=== PATIENT | female | born 1975 | race Hispanic/Latino ===

== ENCOUNTER → 2020-04-16 | Outpatient (CLI) | payer BC, OTHER ==
[~2020-04-16] MED LIST: DIATRIZOATE MEGL/DIATRIZOA SOD 30 ML BTL PO ONE; IOPAMIDOL 370 MG/ML 200 ML INFUS..BTL INJ ONE; SODIUM CHLORIDE 0.9% 50ML 50 ML ONE
--- NOTE | 2020-04-16 14:10 | Diagnostic Imaging Report ---
EXAM: CT Abdomen and Pelvis WITH intravenous contrast INDICATION: Right lower abdominal mass COMPARISON: None. TECHNIQUE: Abdomen and pelvis were scanned utilizing a multidetector helical scanner from the lung base to the pubic symphysis after administration of IV contrast. Coronal and sagittal reformations were obtained. Routine protocol was performed. Scan was performed during portal venous phase. IV CONTRAST: 100mL of Isovue 370 ORAL CONTRAST: Gastrografin RADIATION DOSE: Total DLP: 927 mGy*cm Dose modulation, iterative reconstruction, and/or weight based adjustment of the mA/kV was utilized to reduce the radiation dose to as low as reasonably achievable. FINDINGS: LOWER THORAX: Normal. HEPATOBILIARY: No focal hepatic lesions. No biliary ductal dilatation. The gallbladder appears unremarkable. SPLEEN: No splenomegaly. PANCREAS: No focal masses or ductal dilatation. ADRENALS: No adrenal nodules. KIDNEYS/URETERS: No hydronephrosis, stones, or solid mass lesions. PELVIC ORGANS/BLADDER: Bulky uterine fibroids. PERITONEUM / RETROPERITONEUM: No free air or fluid. LYMPH NODES: No lymphadenopathy. VESSELS: Unremarkable. GI TRACT: No abnormal bowel thickening. No bowel obstruction. Normal appendix. BONES AND SOFT TISSUES: 3.6 x 3.1 x 3.6 cm mass of the right lower abdominal subcutaneous soft tissues. IMPRESSION: Anterior right lower abdominal subcutaneous 3.6 x 3.1 x 3.6 cm soft tissue mass. This would be amenable to ultrasound-guided percutaneous biopsy. Signed by: Elizabeth Pappas MD on 04/16/2020 2:07 PM
== END ==
LOC: EDBD 12:00 → CT 12:07
PROVIDERS: ATTEND Surgery
DX: R22.2 Localized swelling, mass and lump, trunk (principal)
CPT/HCPCS: 74177; 81025; Q9967

== ENCOUNTER → 2020-04-23 | Outpatient (CLI) | payer BC, OTHER ==
[~2020-04-23] MED LIST changes: -DIATRIZOATE MEGL/DIATRIZOA SOD 30 ML BTL PO ONE; -IOPAMIDOL 370 MG/ML 200 ML INFUS..BTL INJ ONE; -SODIUM CHLORIDE 0.9% 50ML 50 ML ONE; +VIT B12 PO
--- NOTE | 2020-04-23 14:53 | Diagnostic Imaging Report ---
PROCEDURE: Ultrasound-guided biopsy Procedural Personnel Attending physician(s): Elizabeth Pappas MD Fellow physician(s): None Resident physician(s): None Advanced practice provider(s): None Pre-procedure diagnosis: Abdominal mass Post-procedure diagnosis: Same Indication: RLQ subcutaneous soft tissue mass Previous biopsy of same target (QCDR): No Additional clinical history: None Complications: No immediate complications. IMPRESSION: Ultrasound-guided biopsy of right lower quadrant subcutaneous soft tissue mass. Plan: Specimen(s) sent for evaluation. PROCEDURE SUMMARY: - Percutaneous US-guided coaxial core needle biopsy - Additional procedure(s): None PROCEDURE DETAILS: Pre-procedure Reference imaging for biopsy target: CT abdomen/pelvis 04/16/2020 Consent: Informed consent for the procedure including risks, benefits and alternatives was obtained and time-out was performed prior to the procedure. Preparation: The site was prepared and draped using maximal sterile barrier technique including cutaneous antisepsis. Anesthesia/sedation Level of anesthesia/sedation: No sedation Anesthesia/sedation administered by: Independent trained observer under attending supervision with continuous monitoring of the patient?s level of consciousness and physiologic status Total intra-service sedation time (minutes): NA Imaging prior to biopsy The patient was positioned supine. Initial ultrasound was performed. Biopsy target: - Maximal diameter (cm): 2.9 - Location: RLQ Other findings: None Biopsy Local anesthesia was administered. Under US guidance, the biopsy needle was advanced to the target and biopsy was performed. Coaxial needle: 17 gauge Core needle biopsy device: Mu Sigmano Core needle size: 18 gauge Number of core specimens: 2 Needle removal The biopsy needle was removed and a sterile dressing was applied. Tract embolization: None Additional Details Additional description of procedure: None Equipment details: None Specimens removed: Biopsy samples as detailed above Estimated blood loss (mL): Less than 10 Standardized report: [email or web address] Attestation Signer name: Elizabeth Pappas MD I attest that I was present for the entire procedure. I reviewed the stored images and agree with the report as written. Signed by: Elizabeth Pappas MD on 04/23/2020 2:49 PM
== END ==
LOC: US 12:46
PROVIDERS: ATTEND Surgery
DX: R19.03 Right lower quadrant abdominal swelling, mass and lump (principal)
CPT/HCPCS: 49180; 76942; 88305

== ENCOUNTER → 2020-04-27 | Day surgery (SDC) | payer BC, OTHER ==
[2020-04-23 14:31] LABS: BASOPHILS # (AUTO) 0.1 (0.0-0.1); BASOPHILS % 0.5 % (0.0-1.0); EOSINOPHILS # (AUTO) 0.2 (0.0-0.4); EOSINOPHILS % 1.7 % (0.0-6.0); HEMOGLOBIN 12.9 g/dL (12.0-16.0); LYMPHOCYTES # (AUTO) 2.9 (1.0-3.2); MEAN CORPUSCULAR HEMOGLOBIN 28.9 pg (28-32); MEAN CORPUSCULAR HGB CONC 33.9 g/dL (31-35); MONOCYTES # (AUTO) 0.6 (0.2-0.8); MONOCYTES % 5.5 % (4.4-11.3); NEUTROPHILS # (AUTO) 6.6 (2.1-6.9); NEUTROPHILS % 63.9 % (38.7-80.0); PLATELET COUNT 282 x10e3/uL (140-360); RED BLOOD COUNT 4.47 x10e6/uL (3.6-5.1); RED CELL DISTRIBUTION WIDTH 12.9 % (11.7-14.4)
[2020-04-23 14:57] LABS: ANION GAP 12.6 mmol/L (8-16); BLOOD UREA NITROGEN 14 mg/dL (7-26); BUN/CREATININE RATIO 19 (6-25); CALCIUM 9.2 mg/dL (8.4-10.2); CARBON DIOXIDE 26 mmol/L (22-29); CHLORIDE 104 mmol/L (98-107); CREATININE, SERUM 0.74 mg/dL (0.57-1.11); EST GLOMERULAR FILTRATION RATE > 60 ML/MIN (60-); GLUCOSE 89 mg/dL (74-118); POTASSIUM 4.6 mmol/L (3.5-5.1); SODIUM 138 mmol/L (136-145)
[~2020-04-27] MED LIST changes: +ACETAMINOPHEN 1000 MG/100 ML IV ONE; +BACITRACIN 50,000 UNIT VIAL ONE; +BUPIVACAINE 0.25%/EPI 30ML SDV INJ ONE; +CEFAZOLIN SOD 1 GM VIAL ONE; +DEXAMETHASONE SOD PHOS INJ 4 MG/ML VIAL ONE; +HYDROMORPHONE 1MG/1ML INJ ONE; +KETOROLAC TROMETHAMINE 30 MG/ML VIAL ONE; +LIDOCAINE HCL 2% LOCAL INJ 5 ML SDV VIAL INJ ONE; +ONDANSETRON HCL INJ 2MG/ML 2ML 2 MG/ML VIAL ONE; +PROPOFOL IV EMULSION 10 MG/ML 20 ML VIAL ONE; +SEVOFLURANE INHAL SOLN 250 ML PEN BTL ONE
--- NOTE | 2020-04-27 11:08 | Operative Report ---
DATE OF PROCEDURE: SURGEON: Derick Salcido MD PREOPERATIVE DIAGNOSIS: Endometrioma of the abdominal wall. POSTOPERATIVE DIAGNOSIS: Endometrioma of the abdominal wall. PROCEDURE PERFORMED: Resection of abdominal wall and placement of mesh. ANESTHESIA: General. ESTIMATED BLOOD LOSS: Minimal. DRAINS: None. COMPLICATIONS: None. LIBRARY TECHNOLOGY INSTRUCTOR: Daisha Purcell, licensed surgical appliance fitter. INDICATION AND FINDINGS: The patient is a 44-year-old female, who was complaining of a mass in the right lower quadrant in the area of Pfannenstiel incision several years ago. She had a total of 4 C-sections, one done through a Pfannenstiel incision and the other was opened down. Preoperatively, she had a CT scan that revealed a mass in the right lower quadrant and a needle CT-guided biopsy revealed endometriosis. INTRAOPERATIVE FINDINGS: A 4 cm hard formed mass that was attached to the fascia. The mass was removed en bloc with the fascia with clear margins of visually and by palpation. The resulting defect was then covered using a polypropylene flat mesh. DESCRIPTION OF PROCEDURE: With the patient lying on the operative table in the supine position after administration of general anesthesia, she was prepped and draped for excision of abdominal wall mass. The mass was easily palpable. An incision was made directly across the area down through the subcutaneous tissue until the fascia keeping at all times the mass palpated and the incision was made around the mass, taking care not to incise the mass and not leave any endometrioma behind. The mass was attached to the rectus sheath from the right side and then we have to resect that until the point where we could see the rectus muscle. After we had resected the mass with the fascia and the abdominal wall, then we placed a mesh using polypropylene mesh cut to the appropriate size of the hole, which was rather large. This hole measured at least 6 x 7 cm. The mesh was then placed over the muscle and then secured to the fascia in an onlay fashion with the stitches tied on the inside noemi against the mesh. The repair appeared to be quite good. The mesh was lying flat. Then, we irrigated the wound. Sponge and instrument count was pronounced correct. Would give a local infiltration with 0.25% Marcaine with epinephrine peripherally around the repair and then we closed the wound in layers. We used 0 chromics for the subcutaneous fascia and superficial layers. The subcuticular plane was closed using 2-0 Vicryl and the skin was closed using a combination of silk and marcus. The skin was infiltrated with 0.25% Marcaine with epinephrine also. About a total of 40 mL were injected. The patient tolerated the procedure well and taken to recovery room in stable condition. MD YAEL Quezada/TOM /[id number]
[2020-04-27 11:40] VITALS: BP 117/69
== END | disposition home or self-care (01) ==
LOC: OR 05:55
PROVIDERS: ATTEND Surgery
DX: N80.6 Endometriosis in cutaneous scar (principal); Z01.810 Encounter for preprocedural cardiovascular examination; Z01.812 Encounter for preprocedural laboratory examination; Z11.59 Encounter for screening for other viral diseases; K46.9 Unspecified abdominal hernia without obstruction or gangrene; Z83.3 Family history of diabetes mellitus; Z82.49 Family history of ischemic heart disease and other diseases of the circulatory system
CPT/HCPCS: 22903; 36415; 80048; 81025; 85025; 88305; 93005; C1781; J0131; J0690; J1100; J1170; J1885; J2001; J2405; J2704; U0002

== ENCOUNTER → 2020-06-29 | Day surgery (SDC) | payer BC, OTHER ==
[2020-06-26 10:01] LABS: BASOPHILS # (AUTO) 0.1 (0.0-0.1); BASOPHILS % 0.6 % (0.0-1.0); EOSINOPHILS # (AUTO) 0.1 (0.0-0.4); EOSINOPHILS % 1.4 % (0.0-6.0); HEMATOCRIT 38.5 % (34.2-44.1); HEMOGLOBIN 13.2 g/dL (12.0-16.0); LYMPHOCYTES # (AUTO) 2.9 (1.0-3.2); LYMPHOCYTES % 35.6 % (18.0-39.1); MEAN CORPUSCULAR HGB CONC 34.3 g/dL (31-35); MEAN CORPUSCULAR VOLUME 84.6 fL (81-99); MONOCYTES # (AUTO) 0.6 (0.2-0.8); MONOCYTES % 7.1 % (4.4-11.3); NEUTROPHILS # (AUTO) 4.4 (2.1-6.9); NEUTROPHILS % 54.9 % (38.7-80.0); PLATELET COUNT 289 x10e3/uL (140-360); RED BLOOD COUNT 4.55 x10e6/uL (3.6-5.1); RED CELL DISTRIBUTION WIDTH 13.8 % (11.7-14.4)
[2020-06-26 10:28] LABS: ALANINE AMINOTRANSFERASE 22 IU/L (0-55); ALBUMIN 4.3 g/dL (3.5-5.0); ALBUMIN/GLOBULIN RATIO 1.4 (0.8-2.0); ALKALINE PHOSPHATASE 98 IU/L (40-150); ANION GAP 11.4 mmol/L (8-16); BLOOD UREA NITROGEN 6 mg/dL (7-26); BUN/CREATININE RATIO 9 (6-25); CALCIUM 9.2 mg/dL (8.4-10.2); CARBON DIOXIDE 27 mmol/L (22-29); CHLORIDE 103 mmol/L (98-107); CREATININE, SERUM 0.66 mg/dL (0.57-1.11); EST GLOMERULAR FILTRATION RATE > 60 ML/MIN (60-); GLUCOSE 108 mg/dL (74-118); POTASSIUM 4.4 mmol/L (3.5-5.1); SODIUM 137 mmol/L (136-145)
[~2020-06-29] MED LIST changes: -ACETAMINOPHEN 1000 MG/100 ML IV ONE; +ACETAMINOPHEN/CODEINE 300MG - 30MG TAB ONE; -BACITRACIN 50,000 UNIT VIAL ONE; -BUPIVACAINE 0.25%/EPI 30ML SDV INJ ONE; +BUPIVACAINE HCL 0.5% INJ 30 ML VIAL INJ ONE; -CEFAZOLIN SOD 1 GM VIAL ONE; +FENTANYL CITRATE/PF 100MCG/2 ML INJ ONE; +GLYCOPYRROLATE INJ 0.2 MG/ML VIAL ONE; +HYDROGEN PEROXIDE 120 ML BTL ONE; -HYDROMORPHONE 1MG/1ML INJ ONE; +LIDOCAINE 2%/ EPINEPHRINE 20ML MDV ONE; +MIDAZOLAM HCL 2 MG/2 ML VIAL ONE; +NEOSTIGMINE 1 MG/ML 10ML VIAL ONE; +ROCURONIUM BROMIDE 10 MG/ML 5ML VIAL IV ONE
--- NOTE | 2020-06-29 10:50 | Operative Report ---
DATE OF PROCEDURE: 06/29/2020 SURGEON: Derick Salcido MD PREOPERATIVE DIAGNOSES: 1. Cholelithiasis. 2. Chronic cholecystitis. 3. Obesity. POSTOPERATIVE DIAGNOSES: 1. Cholelithiasis. 2. Chronic cholecystitis. 3. Obesity. PROCEDURE PERFORMED: Laparoscopic cholecystectomy. ANESTHESIA: General. WILDLIFE BIOLOGY TECHNICIAN: SUPRIYA Mitchell. ESTIMATED BLOOD LOSS: Minimal. DRAINS: None. COMPLICATIONS: None. INDICATION AND FINDINGS: The patient is a 44-year-old female who several weeks ago had undergone resection of an abdominal mass that turned out to be a large endometrioma was found to have gallstones on an ultrasound that was done for the workup of the mass. Endometrioma of the right lower quadrant suprapubic area has been resected. The wound has healed now. She is admitted for cholecystectomy because of symptomatic cholelithiasis. Her liver chemistries are normal, and there was no ductal dilatation. However, there was a hepatic steatosis on the ultrasound consistent with the obesity. In addition, the CT scan that had been performed prior to resection of the endometrioma which confirmed the presence of the mass revealed uterine fibroids. There were no ovarian abnormalities. No other pelvic abnormalities were seen on that CAT scan. INTRAOPERATIVE FINDINGS: The patient had several large stones. There was no ductal dilatation. The cystic duct was short. There was some mild hepatic liver infiltration. Laparoscopy in addition to those findings revealed dense adhesions in the pelvis from a previous with adhesions of the omentum and omentum stuck to the anterior abdominal wall in the area of the pelvis. Uterus was enlarged. Because of the adhesions, I could not visualize the entire . I was able to evaluate the right side of the pelvis and the adnexa and that appeared to be normal, free of any endometrial implants. The uterus as I said was somewhat enlarged consistent with CT findings. The left side of the pelvis could not be evaluated because of the dense adhesions. DESCRIPTION OF PROCEDURE: With the patient lying on the operative table in supine position after administration of general anesthesia, she was prepped and draped for laparoscopic cholecystectomy. The procedure was begun by establishing the pneumoperitoneum in the right upper quadrant midclavicular line because of the previous procedure. After we insufflated the pneumoperitoneum using 15 mm of pressure in that location, we placed a 5 mm trocar and then under direct vision with the camera, we placed a 10 mm subxiphoid and then right anterior axillary trocar. We expected the pelvis as previously stated and the findings noted above were seen. In order to have evaluated the left side of the pelvis, I would have to perform extensive adhesiolysis and that would have been another major case with the risks of injuring the small bowel creating peritonitis. She had no pelvic symptomatology and I elected to continue the procedure. She will be referred to Gynecology postoperatively. After we did that, we completed the cholecystectomy. The gallbladder wall was somewhat thickened consistent with chronic cholecystitis and then we began the dissection after retracted the gallbladder cephalad and laterally and inferiorly with two grasping lateral 5 mm trocars. Began the dissection until we exposed the cystic duct was short. There was some fibrosis in that location, but we were able to identify the cystic duct as well as the junction with the common bile duct, which was seen 360 degrees circumferentially. We also identified the cystic artery and only at that point, we transected those two structures between titanium clips as well as the posterior branch artery of the gallbladder. We continued the dissection until we using electrocautery traction and counter traction until we detached the gallbladder. We placed the endobag and removed it through the umbilical port. We then reinspected the operative field after ascertaining there was no bile leak, no bleeding, no apparent bowel injury. We went ahead and closed the wound using 2-0 Vicryl for the umbilical site that had to be an enlarged because of the large size of the stones. 3-0 Vicryl in the subcutaneous tissue for the location as well as the subxiphoid port and the skin of all the port was closed using marcus, 0.25% Marcaine with 1% Xylocaine with epinephrine mixture was used to give a field block at the end of the case. The patient tolerated the procedure well, was taken to recovery room in stable condition. MD YAEL Quezada/TOM /[id number]
[2020-06-29 11:15] VITALS: BP 133/78
== END | disposition home or self-care (01) ==
LOC: OR 06:02
PROVIDERS: ATTEND Surgery
DX: K80.10 Calculus of gallbladder with chronic cholecystitis without obstruction (principal); E66.9 Obesity, unspecified; K76.89 Other specified diseases of liver; D25.9 Leiomyoma of uterus, unspecified; Z01.812 Encounter for preprocedural laboratory examination; Z11.59 Encounter for screening for other viral diseases
CPT/HCPCS: 36415; 47562; 80053; 81025; 85025; 88304; C1766; J1100; J1885; J2001 ×2; J2250; J2405; J2704; J2710; J3010; U0002